=== PATIENT | male | born 1995 | race Two or more races ===

== ENCOUNTER 2019-05-04 04:40 | Emergency (ER) | payer OTHER ==
[2019-05-04] VITALS (11 sets, daily range): BP systolic 119–129; BP diastolic 65–86
[~2019-05-04] VITALS: Ht 165.1 cm; Wt 72.6 kg
--- NOTE | 2019-05-04 05:06 | Emergency Room Report ---
History of Present Illness General Chief Complaint: Alcohol Intoxication Source: Patient, EMS, Law Enforcement (Stone Luque MD) Present Illness HPI [employer] were called by family. Apparently the patient was drinking alcohol. He was threatening to the family. No violence occurred. Patient with a history of a brain tumor in the past post surgery. Patient denies doing any other drugs and alcohol. Patient denies any pain at this time. Patient refuses to answer questions. (Stone Luque MD) Allergies: Coded Allergies: No Known Allergies (Unverified , 01/29/14) Patient History Limited by: medical condition Past Medical History: see triage record Past Surgical History: other - TRIPE SCRAPER shunt Social History: Reports: alcohol use Social History Narrative with family Reviewed Nursing Documentation: PMH: Agreed; PSxH: Agreed (Stone Luque MD) Nursing Documentation-PMH Past Medical History: No Stated History (Stone Luque MD) Review of Systems All Other Systems: limited (Stone Luque MD) Physical Exam Vital Signs Date Time Temp Pulse Resp B/P (MAP) Pulse Ox O2 Delivery O2 Flow Rate FiO2 05/04/19 04:40 98.2 96 16 123/78 (93) 97 Room Air Sp02 EP Interpretation: reviewed, normal General Appearance: well appearing, no apparent distress, GCS 15 Head: normocephalic, other - TRIPE SCRAPER shunt Eyes: bilateral eye abnormal EOM - nystagmus, bilateral eye Scleral Injection ENT: moist mucus membranes Neck: full range of motion, supple Respiratory: lungs clear, normal breath sounds Cardiovascular #1: regular rate, rhythm, no edema Cardiovascular #2: 2+ radial (L) Gastrointestinal: non tender, decreased bowel sounds Genitourinary: no CVA tenderness Musculoskeletal: normal range of motion, digits/nails normal, moves extm spontaneously Neurologic: other - nystagmus, ataxia (trunkal), equal hull and deck remover but poor compliance, respond to pain all 4, slurred speech Psychiatric: no suicidal/homicidal ideation, other - threatening PD and staff Skin: no rash, other - old scar R temporal area (Stone Luque MD) Medical Decision Making Medical: Alcohol Abuse Behavioral: Other Reaction to Intervention: No change Restraint Reassesment I, Stone Luque MD, have personally evaluated this patient. Laboratory tests have been reviewed and addressed accordingly. The patient is deemed to present a danger to themselves and/or others. This is based on the exam, history ( provided by patient, EMS/[employer] and/or family) and observedandr reported behavior. Attempts for non-invasive measures have been considered and/or attempted, however, have been futile. It is in the best interest of the nursing staff, the patient, and others involved in this patient's care that behavioral restraints be applied. Patient evaluation reveals the following: patient mostly cooperative but intermittent threats to PD and staff. (Stone Luque MD) Diagnostic Impression: Primary Impression: Acute alcoholic intoxication Qualified Codes: F10.929 - Alcohol use, unspecified with intoxication, unspecified Additional Impressions: TRIPE SCRAPER (ventriculoperitoneal) shunt status Sinusitis Qualified Codes: J32.2 - Chronic ethmoidal sinusitis ER Course Patient presents with history of alcohol ingestion and aggressive behavior. Differential includes alcohol intoxication, electrolyte imbalance, brain bleed, exacerbation of underlying cytopathy amongst others. Evaluation with EKG, chest x-ray, CT of the head and labs. The CT is indicated with history of tumor and abnormal behavior. Treatment with IV hydration. Patient is aggressive and not responding to attempts to de-escalate. Hard restraints indicated. Patient still agitated in restraints. Haldol ordered. EKG normal sinus rhythm with a rate of [address] Versed given to perform CT. CT with TRIPE SCRAPER shunt. Await sobriety and re-assessment. Signed out to Dr. Parikh. Laboratory Tests Test 05/04/19 04:55 White Blood Count 6.6 K/UL (4.8-10.8) Red Blood Count 5.71 M/UL (4.70-6.10) Hemoglobin 17.7 G/DL (14.2-18.0) Hematocrit 49.2 % (42.0-52.0) Mean Corpuscular Volume 86 FL (80-99) Mean Corpuscular Hemoglobin 31.0 PG (27.0-31.0) Mean Corpuscular Hemoglobin Concent 35.9 G/DL (32.0-36.0) Red Cell Distribution Width 11.2 % (11.6-14.8) L Platelet Count 401 K/UL (150-450) Mean Platelet Volume 6.3 FL (6.5-10.1) L Neutrophils (%) (Auto) 38.8 % (45.0-75.0) L Lymphocytes (%) (Auto) 44.6 % (20.0-45.0) Monocytes (%) (Auto) 7.7 % (1.0-10.0) Eosinophils (%) (Auto) 7.2 % (0.0-3.0) H Basophils (%) (Auto) 1.6 % (0.0-2.0) Sodium Level 148 MMOL/L (136-145) H Potassium Level 4.5 MMOL/L (3.5-5.1) Chloride Level 108 MMOL/L (98-107) H Carbon Dioxide Level 28 MMOL/L (21-32) Anion Gap 12 mmol/L (5-15) Blood Urea Nitrogen 9 mg/dL (7-18) Creatinine 1.0 MG/DL (0.55-1.30) Estimate Glomerular Filtration Rate > 60 mL/min (>60) Glucose Level 119 MG/DL (74-106) H Calcium Level 9.8 MG/DL (8.5-10.1) Total Bilirubin 0.3 MG/DL (0.2-1.0) Aspartate Amino Transferase (AST) 19 U/L (15-37) Alanine Aminotransferase (ALT) 45 U/L (12-78) Alkaline Phosphatase 142 U/L (46-116) H Total Creatine Kinase 164 U/L (26-308) Total Protein 9.1 G/DL (6.4-8.2) H Albumin 4.9 G/DL (3.4-5.0) Globulin 4.2 g/dL Albumin/Globulin Ratio 1.2 (1.0-2.7) Salicylates Level 0.7 ug/mL (2.8-20) L Acetaminophen Level < 2 MCG/ML (10-30) L Serum Alcohol 355 mg/dL (Stone Luque MD) ER Course This patient was turned over to ms by Dr. Luque. This patient had presented combative with alcohol intoxication. Per report, the patient was threatening the family and EMS personnel and staff. He was initially in restraints but after he became calm the restraints were removed. The patient was allowed to sober up in the emergency department. At the time of turnover, the CT of the head was pending. CT shows no acute findings. He has a known history of a brain tumor and has a ventriculostomy tube. These are all normal appearing on a CT. There is some opacification of the ethmoid air cells consistent with a possible acute sinusitis. That was not a complaint for this patient, however, I will place him on a course of antibiotics as an outpatient. The patient was discharged when he was calm, able to ambulate, appropriate conversation and behavior and articulate his wishes to go home. Patient is given the local drug and alcohol rehabilitation resources. Laboratory Tests Test 05/04/19 04:55 White Blood Count 6.6 K/UL (4.8-10.8) Red Blood Count 5.71 M/UL (4.70-6.10) Hemoglobin 17.7 G/DL (14.2-18.0) Hematocrit 49.2 % (42.0-52.0) Mean Corpuscular Volume 86 FL (80-99) Mean Corpuscular Hemoglobin 31.0 PG (27.0-31.0) Mean Corpuscular Hemoglobin Concent 35.9 G/DL (32.0-36.0) Red Cell Distribution Width 11.2 % (11.6-14.8) L Platelet Count 401 K/UL (150-450) Mean Platelet Volume 6.3 FL (6.5-10.1) L Neutrophils (%) (Auto) 38.8 % (45.0-75.0) L Lymphocytes (%) (Auto) 44.6 % (20.0-45.0) Monocytes (%) (Auto) 7.7 % (1.0-10.0) Eosinophils (%) (Auto) 7.2 % (0.0-3.0) H Basophils (%) (Auto) 1.6 % (0.0-2.0) Sodium Level 148 MMOL/L (136-145) H Potassium Level 4.5 MMOL/L (3.5-5.1) Chloride Level 108 MMOL/L (98-107) H Carbon Dioxide Level 28 MMOL/L (21-32) Anion Gap 12 mmol/L (5-15) Blood Urea Nitrogen 9 mg/dL (7-18) Creatinine 1.0 MG/DL (0.55-1.30) Estimate Glomerular Filtration Rate > 60 mL/min (>60) Glucose Level 119 MG/DL (74-106) H Calcium Level 9.8 MG/DL (8.5-10.1) Total Bilirubin 0.3 MG/DL (0.2-1.0) Aspartate Amino Transferase (AST) 19 U/L (15-37) Alanine Aminotransferase (ALT) 45 U/L (12-78) Alkaline Phosphatase 142 U/L (46-116) H Total Creatine Kinase 164 U/L (26-308) Total Protein 9.1 G/DL (6.4-8.2) H Albumin 4.9 G/DL (3.4-5.0) Globulin 4.2 g/dL Albumin/Globulin Ratio 1.2 (1.0-2.7) Salicylates Level 0.7 ug/mL (2.8-20) L Acetaminophen Level < 2 MCG/ML (10-30) L Serum Alcohol 355 mg/dL ([facility]) EKG Diagnostic Results Rate: normal Rhythm: NSR ST Segments: no acute changes (Stone Luque MD) Rhythm Strip Diag. Results EP Interpretation: yes Rhythm: NSR, no PVC's, no ectopy (Stone Luque MD) Chest X-Ray Diagnostic Results Chest X-Ray Diagnostic Results : Chest X-Ray Ordered: Yes # of Views/Limited/Complete: 1 View Indication: Other EP Interpretation: Yes Interpretation: no consolidation, no effusion, no pneumothorax Impression: No acute disease Electronically Signed by: Electronically signed by Stone Luque MD (Stone Luque MD) CT/MRI/US Diagnostic Results CT/MRI/US Diagnostic Results : Imaging Test Ordered: head Impression TRIPE SCRAPER shunt, old changes (Stone Luque MD) CT/MRI/US Diagnostic Results : Imaging Test Ordered: CT head Impression See official report in the electronic medical record. There are postsurgical changes of an occipital decompression with associated right cerebellar encephalomalacia. As well as a right frontal ventriculostomy tube placement. There is no hydrocephalus. There is no intracranial hemorrhage , midline shift or mass-effect. No skull fracture. There is opacification of multiple right ethmoid air cells consistent with acute sinusitis. ([facility]) Last Vital Signs Date Time Temp Pulse Resp B/P (MAP) Pulse Ox O2 Delivery O2 Flow Rate FiO2 05/04/19 07:15 97.8 85 16 129/86 95 Room Air Status: improved (Stone Luque MD) Disposition: HOME, SELF-CARE Condition: Improved Scripts Amoxicillin/Potassium Clav 875-125* (AUGMENTIN 875-125 TABLET*) 1 Each Tablet 1 TAB ORAL TWICE A DAY, #14 TAB Prov: Delmis He DO 05/04/19 Patient Instructions: Alcohol Intoxication, [id number] Stone Luque MD May 04, 2019 05:06 Delmis He DO May 04, 2019 09:27
[2019-05-04] MEDS ORDERED: Haloperidol 5mg/ml Inj IM ONE (05:15)
[2019-05-04 05:17] LABS: BASOPHILS % (AUTO) 1.6 % (0.0-2.0); EOSINOPHILS % (AUTO) 7.2 % (0.0-3.0); HEMATOCRIT 49.2 % (42.0-52.0); HEMOGLOBIN 17.7 G/DL (14.2-18.0); LYMPHOCYTES % (AUTO) 44.6 % (20.0-45.0); MEAN CORPUSCULAR VOLUME 86 FL (80-99); MONOCYTES % (AUTO) 7.7 % (1.0-10.0); NEUTROPHILS % (AUTO) 38.8 % (45.0-75.0); PLATELET COUNT 401 K/UL (150-450); RED BLOOD COUNT 5.71 M/UL (4.70-6.10); RED CELL DISTRIBUTION WIDTH 11.2 % (11.6-14.8); WHITE BLOOD COUNT 6.6 K/UL (4.8-10.8)
[2019-05-04 05:24] LABS: ANION GAP 12 mmol/L (5-15); BLOOD UREA NITROGEN 9 mg/dL (7-18); CALCIUM 9.8 MG/DL (8.5-10.1); CARBON DIOXIDE 28 MMOL/L (21-32); CHLORIDE 108 MMOL/L (98-107); POTASSIUM 4.5 MMOL/L (3.5-5.1); SODIUM 148 MMOL/L (136-145)
[2019-05-04 05:30] LABS: ALANINE AMINOTRANSFERASE 45 U/L (12-78); ALBUMIN 4.9 G/DL (3.4-5.0); ALBUMIN/GLOBULIN RATIO 1.2 (1.0-2.7); ALKALINE PHOSPHATASE 142 U/L (46-116); ASPARTATE AMINO TRANSFERASE 19 U/L (15-37); BILIRUBIN,TOTAL 0.3 MG/DL (0.2-1.0); CREATINE KINASE 164 U/L (26-308)
[2019-05-04] MEDS ORDERED: Midazolam 2mg/2ml Inj ONE ×2 (06:13→06:32)
[2019-05-04] MEDS ORDERED: Midazolam 2mg/2ml Inj IVP ONE ×2 (06:30→06:45)
[2019-05-04] MEDS ORDERED: AUGMENTIN 875-1 EAC1 ORAL (09:29)
--- NOTE | 2019-05-04 11:45 | Diagnostic Imaging Report ---
Indication: Headache Technique: Contiguous 5 mm thick transaxial imaging of the head obtained in a Siemens Sensation [address] scanner. Soft tissue and bone windows generated. Automatic Exposure Control was utilized. Total Dose length Product (DLP): 1489.[address] Dose Index Volume (CTDIvol): 62.7 mGy Comparison: none Findings: Suboccipital craniectomy noted with underlying encephalomalacia of the vermis and right cerebellum, resultant dilatation of the fourth ventricle which is in continuity with the area of resection. A right frontal ventriculostomy is present. The ventriculostomy enters the right lateral ventricle crosses septum pellucidum with the tip in the anterior horn of the left lateral ventricle. The ventricles appear normal caliber. There is no mass effect or edema. There is no evidence of acute intracranial hemorrhage. There is moderate opacification of the right ethmoid sinus. IMPRESSION: No acute intracranial hemorrhage, mass effect or edema. Status post suboccipital craniectomy with underlying encephalomalacia as described above. Right frontal ventriculostomy catheter in good position. No hydrocephalus appreciated. The CT scanner at [facility] is accredited by the [employer] and the scans are performed using dose optimization techniques as appropriate to a performed exam including Automatic Exposure control.
--- NOTE | 2019-05-04 12:29 | Diagnostic Imaging Report ---
Indication: Cough Comparison: None A single view chest radiograph was obtained. Findings: Cardiomediastinal appearance is within normal limits for age. The lungs are clear. Pulmonary vascularity is appropriate. The diaphragmatic contour is smooth and costophrenic angles are sharp. No pleural effusions are identified. The bones are unremarkable. Impression: No acute findings
== END 2019-05-04 12:45 | disposition home or self-care (01) ==
LOC: EDBD 04:40 → MERGE 05:12 → EMR 05:12
DX: F10.929 Alcohol use, unspecified with intoxication, unspecified (principal); J32.2 Chronic ethmoidal sinusitis; Y90.8 Blood alcohol level of 240 mg/100 ml or more; Z98.2 Presence of cerebrospinal fluid drainage device; Z72.89 Other problems related to lifestyle; Z85.841 Personal history of malignant neoplasm of brain
CPT/HCPCS: 36415; 70450; 71045; 80053; 82550; 85025; 93005; 96361; 96372; 96374; G0480; G0481; J1630; J2250; J7030; Z7502; 99284